=== PATIENT | male | born 1995 | race Caucasian/White ===

== ENCOUNTER 2016-08-12 13:36 | Emergency (ER) | payer SELFPAY ==
[~2016-08-12] VITALS: Ht 190.5 cm; Wt 81.6 kg
[2016-08-12 13:41] VITALS: BP 130/100
--- NOTE | 2016-08-12 16:37 | NUR ---
PATIENT LEFT WITHOUT BEING SEEN BY DR. KEENE. NO FURTHER CARE PROVIDED FOR PATIENT.
== END 2016-08-12 16:37 | disposition left against medical advice (07) ==
LOC: MED 13:36
DX: R10.13 Epigastric pain (principal); R11.10 Vomiting, unspecified; Z53.21 Procedure and treatment not carried out due to patient leaving prior to being seen by health care provider